=== PATIENT | female | born 1960 | race Caucasian/White ===

== ENCOUNTER 2021-04-11 10:22 | Observation (INO) ==
[2021-04-11 11:40] LABS: Hematocrit 41.2 % (35.3-44.9); Hemoglobin 13.4 g/dL (11.5-15.4); Mean Corpuscular HGB Conc 32.5 g/dL (31.6-35.5); Mean Corpuscular Hemoglobin 30.2 pg (28.0-33.3); Mean Corpuscular Volume 92.8 fL (83.0-100.0); Mean Platelet Volume 9.1 fL (9.4-12.4); Platelet Count 346 K/mcL (140-400); Red Blood Count 4.44 M/mcL (3.82-4.97); Red Cell Distribution Width 14.3 % (11.5-14.5); White Blood Count 14.7 K/mcL (4.3-11.1)
[2021-04-11] MEDS ORDERED: Isovue-370 500 ML BOTTLE IVP ONE (11:49)
[2021-04-11 12:07] LABS: Eosinophils # 0.2 K/mcL (0.0-0.6); Monocytes # 0.4 K/mcL (0.0-1.3); Neutrophils # 8.1 K/mcL (1.6-8.9)
[2021-04-11 12:08] LABS: Platelet Estimate Normal (Normal); Reactive Lymphocytes Present (Not Present)
[2021-04-11 12:14] LABS: BUN/Creatinine Ratio 45 (6-26); Blood Urea Nitrogen 30 mg/dL (6-20); Calcium 8.9 mg/dL (8.6-10.3); Carbon Dioxide 27 mEq/L (23-29); Chloride 102 mEq/L (98-107); Glucose 118 mg/dL (70-105); Osmolality,Calculated 295 (280-300); Potassium 3.6 mEq/L (3.5-5.1); Sodium 139 mEq/L (136-145); Troponin I < 0.03 ng/mL (< 0.04); eGFR For African Americans > 60 (> 60); eGFR For Non-African Americans > 60 (> 60)
[2021-04-11] MEDS ORDERED: 0.9 % Sodium Chloride 1,000 ML IVC STA (12:46)
[2021-04-11 13:39] LABS: Adenovirus Not Detected (Not Detect); Bordetella Pertussis Not Detected (Not Detect); Chlamydophila pneumoniae Not Detected (Not Detect); Coronavirus 229E Not Detected (Not Detect); Coronavirus HKU1 Not Detected (Not Detect); Coronavirus NL63 Not Detected (Not Detect); Coronavirus OC43 Not Detected (Not Detect); Human Metapneumovirus Not Detected (Not Detect); Human Rhinovirus/Enterovirus Not Detected (Not Detect); Influenza A Subtype 2009 H1 Not Detected (Not Detect); Influenza B Not Detected (Not Detect); Mycoplasma pneumoniae Not Detected (Not Detect); Parainfluenza Virus 1 Not Detected (Not Detect); Parainfluenza Virus 2 Not Detected (Not Detect); Parainfluenza Virus 3 Not Detected (Not Detect); Parainfluenza Virus 4 Not Detected (Not Detect); Respiratory Syncytial Virus Not Detected (Not Detect); SARS-CoV-2 Not Detected (Not Detect)
[2021-04-11] MEDS ORDERED: Ondansetron 4 MG/2 ML VIAL IVP PRN (15:12)
[2021-04-11] MEDS ORDERED: Naloxone 0.4 MG/ML INJ IVP PRN (15:12)
[2021-04-11] MEDS ORDERED: *HR* LORazepam 2 MG/ML VIAL IVP PRN ×3 (16:42)
[2021-04-11] MEDS: 0.9 % Sodium Chloride 1,000 ML IVC SCH (17:38)
[2021-04-11] MEDS: Folic Acid 1 MG TABLET PO SCH (17:38)
[2021-04-11] MEDS: MethylPREDNISolone 40 MG/ML VIAL IVP SCH (18:06)
[2021-04-11] MEDS: Thiamine (B-1) 100 MG in 0.9 % Sodium Chloride 50 ML IVPB SCH (18:07)
[2021-04-11] MEDS: Ipratropium/Albuterol Neb 3 ML IH SCH ×3 (18:19→23:47)
[2021-04-11] MEDS: *HR* Heparin 5,000 UNIT/ML VIAL SQ SCH (18:43)
[2021-04-11] MEDS: Budesonide/Formoterol 160/4.5 1 PUFF INH IH SCH (20:11)
[2021-04-11] MEDS ORDERED: traZODone 50 MG TABLET PO SCH (21:00)
[2021-04-11] MEDS ORDERED: OLOPATADINE HCL BOTH EYES SCH (21:00)
[2021-04-11] MEDS ORDERED: *HR* Metoprolol 5 MG/5 ML VIAL IVP ONE (23:13)
[2021-04-12 02:11] LABS: Basophils % 0.3 %; Hematocrit 38.9 % (35.3-44.9); Hemoglobin 12.9 g/dL (11.5-15.4); Immature Granulocytes % 0.8 % (0-4); Lymphocytes # 0.9 K/mcL (0.6-4.6); Lymphocytes % 10.3 %; Mean Corpuscular HGB Conc 33.2 g/dL (31.6-35.5); Mean Corpuscular Hemoglobin 31.2 pg (28.0-33.3); Mean Corpuscular Volume 94.2 fL (83.0-100.0); Mean Platelet Volume 9.3 fL (9.4-12.4); Monocytes # 0.1 K/mcL (0.0-1.3); Monocytes % 0.9 %; Neutrophils # 7.9 K/mcL (1.6-8.9); Platelet Count 304 K/mcL (140-400); Red Blood Count 4.13 M/mcL (3.82-4.97); Red Cell Distribution Width 14.6 % (11.5-14.5); Segmented Neutrophils % 87.7 %
[2021-04-12 02:31] LABS: BUN/Creatinine Ratio 31 (6-26); Blood Urea Nitrogen 29 mg/dL (6-20); Calcium 8.2 mg/dL (8.6-10.3); Carbon Dioxide 23 mEq/L (23-29); Chloride 104 mEq/L (98-107); Glucose 201 mg/dL (70-105); Magnesium 1.8 mg/dL (1.6-2.6); Osmolality,Calculated 300 (280-300); Phosphorous 3.9 mg/dL (2.7-4.5); Sodium 139 mEq/L (136-145); eGFR For African Americans > 60 (> 60); eGFR For Non-African Americans > 60 (> 60)
[2021-04-12] MEDS: Ipratropium/Albuterol Neb 3 ML IH SCH ×4 (03:36→16:05)
[2021-04-12] MEDS: 0.9 % Sodium Chloride 1,000 ML IVC SCH (04:37)
[2021-04-12] MEDS: MethylPREDNISolone 40 MG/ML VIAL IVP SCH (05:51)
[2021-04-12] MEDS: *HR* Heparin 5,000 UNIT/ML VIAL SQ SCH (05:52)
[2021-04-12] MEDS: Budesonide/Formoterol 160/4.5 1 PUFF INH IH SCH (07:29)
[2021-04-12] MEDS ORDERED: Propranolol LA (24 HR) 80 MG CAP.SA.24H PO SCH (09:00)
[2021-04-12] MEDS ORDERED: ARIPiprazole 10 MG TABLET PO SCH (09:00)
[2021-04-12] MEDS ORDERED: Aspirin Enteric Coated 81 MG Tablet PO SCH (09:00)
[2021-04-12] MEDS ORDERED: Venlafaxine XR (24 HR) 150 MG CAP.ER.24H PO SCH (09:00)
[2021-04-12] MEDS ORDERED: lisinopriL 10 MG TABLET PO SCH (09:00)
[2021-04-12] MEDS: Folic Acid 1 MG TABLET PO SCH (09:19)
[2021-04-12] MEDS: Thiamine (B-1) 100 MG in 0.9 % Sodium Chloride 50 ML IVPB SCH (09:20)
[2021-04-12 10:48] VITALS: BP 137/83
== END 2021-04-12 16:32 | disposition home or self-care (01) ==
LOC: 2ANU 10:22 → EMEROOARM 10:22 → SUATTDRO 15:55 → 2ANU 16:45
PROVIDERS: ADMIT Internal Medicine; ATTEND Student in an Organized Health Care Education/Training Program

== ENCOUNTER 2022-01-08 16:48 | Inpatient (IN) ==
[2022-01-08] MEDS ORDERED: 0.9 % Sodium Chloride 1,000 ML IVC ONE (18:05)
[2022-01-08 18:33] LABS: Basophils # 0.1 K/mcL (0.0-0.2); Basophils % 0.8 %; Eosinophils % 0.3 %; Hemoglobin 14.8 g/dL (11.5-15.4); Immature Granulocytes % 0.3 % (0-4); Lymphocytes # 4.3 K/mcL (0.6-4.6); Lymphocytes % 57.2 %; Mean Corpuscular Hemoglobin 33.9 pg (28.0-33.3); Mean Corpuscular Volume 91.5 fL (83.0-100.0); Mean Platelet Volume 10.7 fL (9.4-12.4); Monocytes # 0.3 K/mcL (0.0-1.3); Monocytes % 4.1 %; Neutrophils # 2.8 K/mcL (1.6-8.9); Platelet Count 199 K/mcL (140-400); Red Blood Count 4.37 M/mcL (3.82-4.97); Red Cell Distribution Width 14.6 % (11.5-14.5); Segmented Neutrophils % 37.3 %; White Blood Count 7.5 K/mcL (4.3-11.1)
[2022-01-08 18:40] LABS: Amphetamine Screen,Urine Negative ng/mL (Cutoff=1000); Barbiturate Screen,Urine Negative ng/mL (Cutoff=200); Benzodiazepines Screen,Urine Negative ng/mL (Cutoff=200); Cannabinoid Screen,Urine Negative ng/mL (Cutoff = 50); Cocaine Screen,Urine Negative ng/mL (Cutoff= 300); Opiate Screen,Urine Negative ng/mL (Cutoff=300); Phencyclidine Screen,Urine Negative ng/mL (Cutoff=25)
[2022-01-08 18:46] LABS: Bilirubin,Urine Negative (Negative); Blood,Urine Negative (Negative); Clarity,Urine Turbid (Clear); Color,Urine Yellow (Yellow); Glucose,Urine (UA) Normal (Normal); Hyaline Casts,Urine Moderate per lpf (None Seen); Ketones,Urine Negative (Negative); Leukocyte Esterase,Urine Negative (Negative); Mucus,Urine Few per lpf (None-Few); Nitrite,Urine Negative (Negative); Protein,Urine Trace mg/dL (Neg-Trace); RBC,Urine 0-3 per hpf (0-3); Specific Gravity,Urine 1.018 (1.010-1.025); Squamous Epithelial Cell,Urine Few per hpf (None-Few)
[2022-01-08] MEDS ORDERED: *HR* LORazepam 2 MG/ML VIAL IVP ONE (21:10)
[2022-01-09 00:43] LABS: Albumin 3.3 g/dL (3.5-5.7); Albumin/Globulin Ratio 1.8 (1.1-2.2); Alkaline Phosphatase 326 Units/L (34-104); Blood Urea Nitrogen > 130 mg/dL (8-23); Calcium 7.7 mg/dL (8.6-10.3); Carbon Dioxide 20 mEq/L (23-29); Chloride 92 mEq/L (98-107); Ethanol 102 mg/dL (Less than 10); Globulin 1.8 g/dL (2.4-3.5); Glucose 59 mg/dL (70-105); Lipase 92 Units/L (11-82); Magnesium 1.7 mg/dL (1.6-2.6); Potassium 4.1 mEq/L (3.5-5.1); Sodium 131 mEq/L (136-145); Total Protein 5.1 g/dL (6.4-8.9); eGFR For African Americans > 60 (> 60); eGFR For Non-African Americans > 60 (> 60)
[2022-01-09] MEDS ORDERED: 0.9 % Sodium Chloride 1,000 ML IV ONE (00:54)
[2022-01-09 01:17] LABS: Alanine Aminotransferase 262 Units/L (7-52); Aspartate Amino Transferase 393 Units/L (13-39)
[2022-01-09] MEDS ORDERED: Ondansetron 4 MG/2 ML VIAL IVP PRN (01:19)
[2022-01-09] MEDS ORDERED: Acetaminophen 325 MG TABLET PO PRN (01:19)
[2022-01-09] MEDS ORDERED: Naloxone 0.4 MG/ML INJ IVP PRN (01:19)
[2022-01-09] MEDS ORDERED: Melatonin 3 MG TABLET PO PRN (01:19)
[2022-01-09] MEDS ORDERED: *HR* LORazepam 2 MG/ML VIAL IVP PRN (01:22)
[2022-01-09] MEDS ORDERED: Dextrose Gel 15 GM/37.5 ML TUBE PO PRN ×2 (01:23)
[2022-01-09] MEDS ORDERED: D5% in Water 1,000 ML IVC PRN (01:23)
[2022-01-09] MEDS ORDERED: *HR* Dextrose 50 % in Water (Syg) 50 ML SYRINGE IVP PRN (01:23)
[2022-01-09 03:17] LABS: Hematocrit 37.2 % (35.3-44.9); Hemoglobin 13.4 g/dL (11.5-15.4); Mean Corpuscular Hemoglobin 33.3 pg (28.0-33.3); Mean Corpuscular Volume 92.3 fL (83.0-100.0); Mean Platelet Volume 11.1 fL (9.4-12.4); Platelet Count 164 K/mcL (140-400); Red Blood Count 4.03 M/mcL (3.82-4.97); Red Cell Distribution Width 14.4 % (11.5-14.5); White Blood Count 5.4 K/mcL (4.3-11.1)
[2022-01-09 03:30] LABS: INR 1.1
[2022-01-09 03:33] LABS: Activated Partial Thrombo Time 36.5 Seconds (26.0-36.0)
[2022-01-09] MEDS ORDERED: Isovue-370 500 ML BOTTLE IVP ONE (03:46)
[2022-01-09] MEDS: Ipratropium/Albuterol Neb 3 ML IH SCH ×4 (03:53→21:30)
[2022-01-09 05:24] LABS: Acetaminophen < 10 mcg/mL (10-20); Salicylate < 2.5 mg/dL (15.0-30.0)
[2022-01-09 06:01] LABS: Alanine Aminotransferase 266 Units/L (7-52); Aspartate Amino Transferase 415 Units/L (13-39)
[2022-01-09 06:16] LABS: Hepatitis B Surface Antigen Nonreactive (Nonreactive)
[2022-01-09 06:23] LABS: Blood Urea Nitrogen > 130 mg/dL (8-23)
[2022-01-09 06:45] LABS: Hepatitis C Virus Antibody Nonreactive (Nonreactive)
[2022-01-09 06:47] LABS: Hepatitis B Core IgM Nonreactive (Nonreactive)
[2022-01-09 06:48] LABS: Hepatitis A Antibody IgM Nonreactive (Nonreactive)
[2022-01-09 06:56] LABS: Albumin 3.6 g/dL (3.5-5.7); Albumin/Globulin Ratio 1.6 (1.1-2.2); Alkaline Phosphatase 350 Units/L (34-104); Bilirubin,Total 2.4 mg/dL (0.3-1.0); Calcium 7.6 mg/dL (8.6-10.3); Carbon Dioxide 21 mEq/L (23-29); Chloride 88 mEq/L (98-107); Globulin 2.2 g/dL (2.4-3.5); Glucose 59 mg/dL (70-105); Magnesium 1.8 mg/dL (1.6-2.6); Phosphorous 2.8 mg/dL (2.7-4.5); Potassium 4.3 mEq/L (3.5-5.1); Sodium 127 mEq/L (136-145); Total Protein 5.8 g/dL (6.4-8.9); eGFR For African Americans > 60 (> 60); eGFR For Non-African Americans 57 (> 60)
[2022-01-09] MEDS: *HR* LORazepam 2 MG/ML VIAL IVP PRN ×3 (07:18→20:42)
[2022-01-09] MEDS: 0.9 % Sodium Chloride 1,000 ML IVC SCH ×2 (08:40→17:00)
[2022-01-09] MEDS: Chlorhexidine Rinse 15 ML MOUTHWASH MM SCH ×2 (08:45→20:25)
[2022-01-09] MEDS: Thiamine (B-1) 100 MG TABLET PO SCH (08:45)
[2022-01-09] MEDS: Propranolol LA (24 HR) 80 MG CAP.SA.24H PO SCH (08:45)
[2022-01-09] MEDS: Vitamin B Complex/Vit C/Vit E 1 EACH TABLET PO SCH (08:46)
[2022-01-09] MEDS: Folic Acid 1 MG TABLET PO SCH (08:46)
[2022-01-09] MEDS: Nicotine 21 MG PATCH.TD24 TD SCH (08:46)
[2022-01-09] MEDS: Budesonide/Formoterol 160/4.5 1 PUFF INH IH SCH ×2 (10:48→21:30)
[2022-01-09 11:51] LABS: BUN/Creatinine Ratio 9 (6-26); Blood Urea Nitrogen 7 mg/dL (8-23); Calcium 7.2 mg/dL (8.6-10.3); Carbon Dioxide 26 mEq/L (23-29); Chloride 92 mEq/L (98-107); Glucose 208 mg/dL (70-105); Osmolality,Calculated 272 (280-300); Potassium 3.3 mEq/L (3.5-5.1); Sodium 129 mEq/L (136-145); eGFR For African Americans > 60 (> 60); eGFR For Non-African Americans > 60 (> 60)
[2022-01-09] MEDS: *HR* Heparin 5,000 UNIT/ML VIAL SQ SCH (17:04)
[2022-01-09 18:48] LABS: BUN/Creatinine Ratio 6 (6-26); Blood Urea Nitrogen 5 mg/dL (8-23); Calcium 7.4 mg/dL (8.6-10.3); Carbon Dioxide 25 mEq/L (23-29); Chloride 94 mEq/L (98-107); Glucose 161 mg/dL (70-105); Osmolality,Calculated 271 (280-300); Potassium 3.7 mEq/L (3.5-5.1); Sodium 130 mEq/L (136-145); eGFR For African Americans > 60 (> 60); eGFR For Non-African Americans > 60 (> 60)
[2022-01-09 23:14] LABS: BUN/Creatinine Ratio 6 (6-26); Blood Urea Nitrogen 5 mg/dL (8-23); Calcium 7.4 mg/dL (8.6-10.3); Carbon Dioxide 22 mEq/L (23-29); Chloride 98 mEq/L (98-107); Glucose 223 mg/dL (70-105); Osmolality,Calculated 278 (280-300); Potassium 3.5 mEq/L (3.5-5.1); Sodium 132 mEq/L (136-145); eGFR For African Americans > 60 (> 60); eGFR For Non-African Americans > 60 (> 60)
[2022-01-10] MEDS: 0.9 % Sodium Chloride 1,000 ML IVC SCH ×2 (00:53→08:47)
[2022-01-10 02:05] LABS: Basophils % 0.5 %; Immature Granulocytes % 0.5 % (0-4); Red Blood Count 3.53 M/mcL (3.82-4.97)
[2022-01-10 02:07] LABS: Eosinophils # 0.1 K/mcL (0.0-0.6); Hematocrit 33.8 % (35.3-44.9); Hemoglobin 11.3 g/dL (11.5-15.4); Immature Platelets 6.2 % (1.1-6.1); Lymphocytes # 1.8 K/mcL (0.6-4.6); Lymphocytes % 41.4 %; Mean Corpuscular HGB Conc 33.4 g/dL (31.6-35.5); Mean Corpuscular Volume 95.8 fL (83.0-100.0); Monocytes # 0.3 K/mcL (0.0-1.3); Monocytes % 6.5 %; Neutrophils # 2.1 K/mcL (1.6-8.9); Platelet Count 102 K/mcL (140-400); Red Cell Distribution Width 14.2 % (11.5-14.5); Segmented Neutrophils % 48.1 %; White Blood Count 4.3 K/mcL (4.3-11.1)
[2022-01-10] MEDS: Ipratropium/Albuterol Neb 3 ML IH SCH ×4 (02:17→19:56)
[2022-01-10 02:26] LABS: Alanine Aminotransferase 109 Units/L (7-52); Albumin 3.1 g/dL (3.5-5.7); Albumin/Globulin Ratio 1.4 (1.1-2.2); Alkaline Phosphatase 328 Units/L (34-104); Aspartate Amino Transferase 138 Units/L (13-39); BUN/Creatinine Ratio 6 (6-26); Bilirubin,Total 1.6 mg/dL (0.3-1.0); Blood Urea Nitrogen 5 mg/dL (8-23); Calcium 7.7 mg/dL (8.6-10.3); Carbon Dioxide 24 mEq/L (23-29); Chloride 97 mEq/L (98-107); Globulin 2.2 g/dL (2.4-3.5); Glucose 164 mg/dL (70-105); Osmolality,Calculated 281 (280-300); Potassium 3.4 mEq/L (3.5-5.1); Sodium 135 mEq/L (136-145); Total Protein 5.3 g/dL (6.4-8.9); eGFR For African Americans > 60 (> 60); eGFR For Non-African Americans > 60 (> 60)
[2022-01-10] MEDS: *HR* LORazepam 2 MG/ML VIAL IVP PRN (03:40)
[2022-01-10] MEDS: *HR* Heparin 5,000 UNIT/ML VIAL SQ SCH ×2 (05:20→17:19)
[2022-01-10] MEDS: Budesonide/Formoterol 160/4.5 1 PUFF INH IH SCH ×2 (07:27→19:56)
[2022-01-10] MEDS: Chlorhexidine Rinse 15 ML MOUTHWASH MM SCH ×2 (08:47→20:15)
[2022-01-10] MEDS: Folic Acid 1 MG TABLET PO SCH (08:47)
[2022-01-10] MEDS: Vitamin B Complex/Vit C/Vit E 1 EACH TABLET PO SCH (08:47)
[2022-01-10] MEDS: Thiamine (B-1) 100 MG TABLET PO SCH (08:47)
[2022-01-10] MEDS: Propranolol LA (24 HR) 80 MG CAP.SA.24H PO SCH (08:47)
[2022-01-10] MEDS: Nicotine 21 MG PATCH.TD24 TD SCH (08:48)
[2022-01-10] MEDS ORDERED: Budesonide/Formoterol 160/4.5 1 PUFF INH IH SCH (11:15)
[2022-01-10] MEDS ORDERED: Propranolol LA (24 HR) 80 MG CAP.SA.24H PO SCH (11:15)
[2022-01-10] MEDS: ARIPiprazole 10 MG TABLET PO SCH (12:04)
[2022-01-10] MEDS: Venlafaxine XR (24 HR) 150 MG CAP.ER.24H PO SCH (12:04)
[2022-01-10] MEDS: Gabapentin 400 MG CAPSULE PO SCH ×3 (12:05→20:15)
[2022-01-10] MEDS: Aspirin 81 MG TAB.CHEW PO SCH (12:05)
[2022-01-10] MEDS: lisinopriL 10 MG TABLET PO SCH (12:05)
[2022-01-11 01:32] LABS: Basophils % 0.6 %; Immature Granulocytes % 0.6 % (0-4); Red Cell Distribution Width 14.2 % (11.5-14.5)
[2022-01-11 01:33] LABS: Eosinophils # 0.2 K/mcL (0.0-0.6); Eosinophils % 3.8 %; Hematocrit 35.8 % (35.3-44.9); Hemoglobin 11.6 g/dL (11.5-15.4); Immature Platelets 8.6 % (1.1-6.1); Lymphocytes # 2.5 K/mcL (0.6-4.6); Lymphocytes % 47.9 %; Mean Corpuscular HGB Conc 32.4 g/dL (31.6-35.5); Mean Corpuscular Volume 98.6 fL (83.0-100.0); Mean Platelet Volume 11.3 fL (9.4-12.4); Monocytes # 0.3 K/mcL (0.0-1.3); Monocytes % 4.8 %; Neutrophils # 2.2 K/mcL (1.6-8.9); Nucleated Red Blood Cells 0.4 /100 WBC (0); Platelet Count 101 K/mcL (140-400); Red Blood Count 3.63 M/mcL (3.82-4.97); Segmented Neutrophils % 42.3 %; White Blood Count 5.2 K/mcL (4.3-11.1)
[2022-01-11 01:34] LABS: Albumin 3.4 g/dL (3.5-5.7); Albumin/Globulin Ratio 1.4 (1.1-2.2); Bilirubin,Direct 0.4 mg/dL (0.0-0.2); Bilirubin,Indirect 0.9 mg/dL (0.0-1.0); Bilirubin,Total 1.3 mg/dL (0.3-1.0); Globulin 2.5 g/dL (2.4-3.5); Total Protein 5.9 g/dL (6.4-8.9)
[2022-01-11 01:35] LABS: Magnesium 1.4 mg/dL (1.6-2.6); Phosphorous 3.5 mg/dL (2.7-4.5)
[2022-01-11 01:40] LABS: BUN/Creatinine Ratio 13 (6-26); Blood Urea Nitrogen 7 mg/dL (8-23); Calcium 8.8 mg/dL (8.6-10.3); Carbon Dioxide 26 mEq/L (23-29); Chloride 96 mEq/L (98-107); Glucose 133 mg/dL (70-105); Osmolality,Calculated 274 (280-300); Potassium 3.6 mEq/L (3.5-5.1); Sodium 132 mEq/L (136-145); eGFR For African Americans > 60 (> 60); eGFR For Non-African Americans > 60 (> 60)
[2022-01-11] MEDS: Ipratropium/Albuterol Neb 3 ML IH SCH ×2 (03:41→08:14)
[2022-01-11] MEDS: *HR* Heparin 5,000 UNIT/ML VIAL SQ SCH (05:19)
[2022-01-11] MEDS: Chlorhexidine Rinse 15 ML MOUTHWASH MM SCH (07:15)
[2022-01-11] MEDS: ARIPiprazole 10 MG TABLET PO SCH (07:16)
[2022-01-11] MEDS: Gabapentin 400 MG CAPSULE PO SCH (07:16)
[2022-01-11] MEDS: Thiamine (B-1) 100 MG TABLET PO SCH (07:16)
[2022-01-11] MEDS: Nicotine 21 MG PATCH.TD24 TD SCH (07:16)
[2022-01-11] MEDS: Venlafaxine XR (24 HR) 150 MG CAP.ER.24H PO SCH (07:17)
[2022-01-11] MEDS: Propranolol LA (24 HR) 80 MG CAP.SA.24H PO SCH (07:17)
[2022-01-11] MEDS: Folic Acid 1 MG TABLET PO SCH (07:17)
[2022-01-11] MEDS: Vitamin B Complex/Vit C/Vit E 1 EACH TABLET PO SCH (07:17)
[2022-01-11] MEDS: lisinopriL 10 MG TABLET PO SCH (07:17)
[2022-01-11] MEDS: Aspirin 81 MG TAB.CHEW PO SCH (07:17)
[2022-01-11] MEDS: Budesonide/Formoterol 160/4.5 1 PUFF INH IH SCH (08:14)
[2022-01-11 11:17] VITALS: BP 122/79; PULSE 75; TEMP 97.9; O2SAT 96
== END 2022-01-11 13:15 | disposition home or self-care (01) | DRG 773 ==
LOC: 3BNU 16:48 → EMEROOARM 16:48 → SUATTDRO 01-09 01:44 → 3BNU 01-09 02:26
PROVIDERS: ADMIT Internal Medicine; ATTEND Internal Medicine